=== PATIENT | male | born 1995 | race Caucasian/White ===

== ENCOUNTER → 2016-10-23 | Outpatient (CLI) | payer OTHER, SELFPAY | LOC: M OUTALCOH 08:59 | PROVIDERS: ATTEND Psychiatry & Neurology Psychiatry | DX: Z03.89 Encounter for observation for other suspected diseases and conditions ruled out (principal) ==

== ENCOUNTER → 2018-01-02 | Outpatient (CLI) | payer OTHER | LOC: M OUTALCOH 07:49 | DX: F14.20 Cocaine dependence, uncomplicated (principal) ==

== ENCOUNTER 2018-01-15 13:55 | Outpatient (RCR) | payer OTHER | END 2018-02-06 | LOC: M OUTALCOH 01-28 16:00 | DX: F14.20 Cocaine dependence, uncomplicated (principal); F17.200 Nicotine dependence, unspecified, uncomplicated ==

== ENCOUNTER 2018-02-10 14:13 | Outpatient (RCR) | payer OTHER | END 2018-03-08 | LOC: M OUTALCOH 14:13 | DX: F14.20 Cocaine dependence, uncomplicated (principal); F17.200 Nicotine dependence, unspecified, uncomplicated | CPT/HCPCS: 90834 ==

== ENCOUNTER 2018-03-11 16:00 | Outpatient (RCR) | payer OTHER | END 2018-04-08 | LOC: M OUTALCOH 16:00 | DX: F14.20 Cocaine dependence, uncomplicated (principal); F17.200 Nicotine dependence, unspecified, uncomplicated ==

== ENCOUNTER 2018-05-14 16:00 | Outpatient (RCR) | payer OTHER | END 2018-06-08 | LOC: M OUTALCOH 05-21 16:00 | DX: F14.20 Cocaine dependence, uncomplicated (principal); F17.200 Nicotine dependence, unspecified, uncomplicated ==

== ENCOUNTER 2018-06-25 15:19 | Outpatient (RCR) | payer OTHER | END 2018-07-09 | LOC: M OUTALCOH 15:19 | DX: F14.20 Cocaine dependence, uncomplicated (principal); F17.200 Nicotine dependence, unspecified, uncomplicated ==

== ENCOUNTER → 2020-04-24 | Outpatient (CLI) | payer OTHER ==
--- NOTE | 2020-06-06 06:44 | REP ---
LEFT ANKLE SERIES: 5-VIEWS HISTORY: Pain after inversion injury. FINDINGS: 5-views of the left ankle demonstrate an intact ankle mortise. No fracture or subluxation is seen. Mild anterior soft tissue swelling is seen. IMPRESSION: No fracture noted. MTDD
== END ==
LOC: M RAD 10:50
PROVIDERS: ATTEND Physician Assistant
DX: S93.402A Sprain of unspecified ligament of left ankle, initial encounter (principal); X58.XXXA Exposure to other specified factors, initial encounter; Y92.9 Unspecified place or not applicable

== ENCOUNTER → 2024-10-15 | Outpatient (CLI) | payer SELFPAY | LOC: M OUTALCOH 07:20 | PROVIDERS: ATTEND Psychiatry & Neurology Psychiatry | DX: F15.20 Other stimulant dependence, uncomplicated (principal); F12.10 Cannabis abuse, uncomplicated; F17.200 Nicotine dependence, unspecified, uncomplicated ==

== ENCOUNTER → 2024-11-06 | Outpatient (RCR) | payer SELFPAY | LOC: M OUTALCOH 10-23 12:54 | PROVIDERS: ATTEND Psychiatry & Neurology Psychiatry | DX: F15.20 Other stimulant dependence, uncomplicated (principal); F12.10 Cannabis abuse, uncomplicated; F17.200 Nicotine dependence, unspecified, uncomplicated ==

== ENCOUNTER 2024-12-04 14:00 | Outpatient (RCR) | payer MEDICAID, SELFPAY | END 2024-12-07 | LOC: M OUTALCOH 14:00 | PROVIDERS: ATTEND Psychiatry & Neurology Psychiatry | DX: F15.20 Other stimulant dependence, uncomplicated (principal); F12.10 Cannabis abuse, uncomplicated; F17.200 Nicotine dependence, unspecified, uncomplicated ==

== ENCOUNTER 2024-12-23 11:30 | Outpatient (RCR) | payer OTHER, SELFPAY | END 2025-01-06 | LOC: M OUTALCOH 11:30 | PROVIDERS: ATTEND Psychiatry & Neurology Psychiatry | DX: F15.20 Other stimulant dependence, uncomplicated (principal); F12.10 Cannabis abuse, uncomplicated; F17.200 Nicotine dependence, unspecified, uncomplicated ==